=== PATIENT | male | born 1935 | race Caucasian/White ===

== ENCOUNTER → 2017-05-31 | Day surgery (SDC) | payer MEDICARE ==
[~2017-05-31] VITALS: Ht 162.6 cm; Wt 81.7 kg
[~2017-05-31] MED LIST: 0.9% Sodium Chloride 1,000 ML IV PRN; FLUT9.9S NS; HYDR25TA4 PO; HYT5 PO; LISI10TA PO; PANT20T PO; Sodium Chloride LOK Flush 10 mL Syringe IV PRN; TERA5CAP6 PO; fentaNYL-PF 50 mCg/mL 2 mL Inj IVPUSH PRN
[2017-05-31 15:27] VITALS: BP 120/79; PULSE 64; RESP 12; O2SAT 96
[2017-05-31 16:22] VITALS: BP 101/66; PULSE 62; RESP 15; O2SAT 95
[2017-05-31 16:31] VITALS: BP 112/66; PULSE 57; RESP 16; O2SAT 93
[2017-05-31 16:40] VITALS: BP 110/74; PULSE 64; RESP 16; O2SAT 96
--- NOTE | 2017-05-31 19:49 | ENDO ---
[address] [address] ENDOSCOPY PROCEDURE PATIENT: EULALIA MICHELLE : 1935 MR#: [id number] ADMIT: 05/31/2017 JOB ID: [id number] PROCEDURE: Esophagogastroduodenoscopy. INDICATION: A patient with a history of gastric intestinal metaplasia. Patient's ASA classification is II. Mallampati score is II. MEDICATIONS: Versed 3 mg, fentanyl 75 mcg. INSTRUMENT USED: [id number]. PROCEDURE DETAILS: After informed consent was obtained, the patient was brought into the GI suite, where he was placed on oxygen via nasal cannula and monitored with continuous pulse oximeter, telemetry, and blood pressure monitoring. A time-out was performed. Then, he was placed in a left lateral decubitus position. Medications were administered for sedation. A bite block was placed. The standard EGD scope was inserted through the bite block and advanced under direct visualization to second portion of the duodenum without difficulty. FINDINGS: 1. Normal-appearing duodenal bulb, first and second portion. 2. The pylorus appeared to be slightly deformed, but there was no evidence of ulceration there noted. Multiple random biopsies were obtained at the pylorus as well as random biopsies were obtained throughout the antrum and body of the stomach. The mucosa in the antrum and body of stomach had an erythematous appearance suggestive of gastritis. 3. Retroflexed views in the gastric body were unremarkable. 4. The GE junction was regular at 37 cm. 5. Normal-appearing esophagus. IMPRESSION: Gastritis and deformed pylorus suspect from prior peptic ulcer disease. RECOMMENDATIONS: 1. Await biopsy results. 2. Follow up in GI clinic in 2-4 weeks. COMPLICATIONS: None. ESTIMATED BLOOD LOSS: Less than 5 mL. CC: Hunter MD.
--- NOTE | 2017-06-05 13:29 | PATH ---
SURGICAL PATHOLOGY Attending Physician:Beverly Castro CASE STATUS: Signed Out PATIENT NAME: EULALIA MICHELLE PID: [id number] : 1935 DATE COLLECTED:05/31/2017 00:00 SPECIMEN: Gastric, Biopsy CLINICAL HISTORY: 1). RANDOM GASTRIC BIOPSY FINAL DIAGNOSIS: Random Gastric Biopsy: Portions of gastric body-type and antral-type mucosa with mild chronic gastritis and reactive gastropathy. Negative for H. pylori organisms by H&E and immunohistochemistry studies; please see comment. Patchy intestinal metaplasia is present. Negative for dysplasia and malignancy. ICD10: K29.7 NOTE: IMMUNOHISTOCHEMISTRY: Block 1A: H. pylori: Negative * This test was developed and its performance characteristics determined by [facility]. It has not been cleared or approved by the U.S. Food and Drug Administration. The FDA has determined that such clearance or approval is not necessary. This test is used for clinical purposes. It should not be regarded as investigational or for research. GROSS DESCRIPTION: The specimen is received in one formalin filled container labeled with the patient's name, sublabeled "random gastric" and consists of 4 portions of tissue which aggregate to 0.3 x 0.3 x 0.2 CM. The specimen is entirely submitted in one cassette. 06/03/2017IA ICD-9 CODES: CPT CODES: 1: 64620, 82501 Electronically Signed Out Tosin Pickett MD [facility] Pathology [facility], [place] [address] Technical component performed at [facility], [place], [address] [place] [address] [address], [address]
== END | disposition home or self-care (01) ==
LOC: END 00:45
PROVIDERS: ATTEND Internal Medicine Gastroenterology
DX: K29.50 Unspecified chronic gastritis without bleeding (principal); K31.89 Other diseases of stomach and duodenum; K21.9 Gastro-esophageal reflux disease without esophagitis; I10 Essential (primary) hypertension; Z87.891 Personal history of nicotine dependence
CPT/HCPCS: 43239; J2250; J3010; J7030